=== PATIENT | male | born 1960 | race Caucasian/White ===

== ENCOUNTER → 2016-11-08 | Outpatient (CLI) | payer OTHER ==
--- NOTE | 2016-11-08 08:57 | REP ---
MRI CERVICAL SPINE WITHOUT CONTRAST: 11/08/2016. Clinical history: Neck pain, cervical disc disease. Comparison: 03/21/2004 x-ray. Technique: Sagittal T1, T2 and STIR images with axial T1 and T2 sequences provided. Findings. The normal cervical lordosis is maintained. There is cervical spondylosis with disc space narrowing at C4-5 and greater at C6-7. Loss of disc water signal at all levels. The disc height is maintained at the other levels. Vertebral body heights and marrow signal are normal except for discogenic endplate changes at the C6-7 and C4-5 levels. These are greater at the lower of these two levels. The dens intact. The cervical cord shows no intrinsic signal abnormality, syrinx, atrophy or mass. Craniocervical junction shows ample subarachnoid space with no cerebellar tonsillar ectopia. At C2-3, C3-4 and C4-C5, there is no significant disc bulge or herniation and no spinal stenosis. There is some mild foraminal encroachment on the left at C3-4 due to facet spurs. At C5-6, there is a minimal disc bulge centrally, thinning ventral subarachnoid space but not causing cord compression or central canal stenosis. Foramina are adequate on the right and show some mild encroachment on the left due to uncinate and facet spur. At C6-C7, there is some posterior osteophytic ridging with associated broad-based disc bulge and a small protrusion, right paracentral. This flattens the ventral thecal sac and cord surface. It abuts C8 nerve roots. There is bilateral foraminal encroachment due to uncinate and facet spurs. At C7-T1, there is no significant disc bulge or herniation and no central canal stenosis. There is foraminal encroachment on the right due to uncinate facet spur while the left foramen was ample. Impression: 1. Multilevel degenerative disc disease with posterior osteophytic ridging, broad-based disc bulge and right paracentral disc protrusion at C6-7 abutting and flattening the ventral cord surface causing mild to moderate central canal stenosis. There is foraminal encroachment bilaterally right greater than left. 2. Foraminal encroachment on the right at C7-T1 without central canal stenosis. 3. Mild foraminal encroachment on the left at C5-6 without central canal stenosis. Levels above show no central canal stenosis and only foraminal encroachment on the left side at C4-5 and C3-4. Signed by Ari Grace MD 11/08/2016 09:15 A
== END ==
LOC: M RAD 07:10
PROVIDERS: ATTEND Physician Assistant
DX: M50.30 Other cervical disc degeneration, unspecified cervical region (principal)

== ENCOUNTER → 2017-03-05 | Outpatient (REF) | payer OTHER ==
[2017-03-05 13:35] LABS: INR 0.93
== END ==
LOC: M LAB REF 12:41
PROVIDERS: ATTEND Family Medicine
DX: Z01.818 Encounter for other preprocedural examination (principal)

== ENCOUNTER → 2018-07-28 | Outpatient (CLI) | payer OTHER ==
[~2018-07-28] MED LIST: PROHANCE 279.3MG/ML 15ML VIAL (A9576) As Ordered; PROHANCE 279.3MG/ML 5ML VIAL (A9576) As Ordered
== END ==
LOC: M RAD 09:01
DX: M50.222 Other cervical disc displacement at C5-C6 level (principal); M50.223 Other cervical disc displacement at C6-C7 level; Z98.1 Arthrodesis status; M50.31 Other cervical disc degeneration, high cervical region
CPT/HCPCS: A9576

== ENCOUNTER → 2020-05-05 | Outpatient (CLI) | payer OTHER | LOC: M LABSMTC 12:03 | PROVIDERS: ATTEND Orthopaedic Surgery | DX: Z20.828 Contact with and (suspected) exposure to other viral communicable diseases (principal) ==

== ENCOUNTER → 2020-07-19 | Outpatient (CLI) | payer OTHER ==
[~2020-07-19] MED LIST changes: -PROHANCE 279.3MG/ML 15ML VIAL (A9576) As Ordered; +PROHANCE 279.3MG/ML 15ML VIAL As Ordered ONE; -PROHANCE 279.3MG/ML 5ML VIAL (A9576) As Ordered; +PROHANCE 279.3MG/ML 5ML VIAL As Ordered ONE
--- NOTE | 2020-07-19 14:47 | REPVR ---
PROCEDURE INFORMATION: Exam: MR Head Without and With Contrast Exam date and time: 07/19/2020 2:21 PM Age: 60 years old Clinical indication: Other: Snhl worse RT ear; Additional info: Snhl worse RT ear, R/O retrochoclear path TECHNIQUE: Imaging protocol: MR of the head without and with intravenous contrast. 3D rendering (Not supervised by radiologist): MIP and/or 3D reconstructed images were created by the technologist. Contrast material: PROHANCE; Contrast volume: 20 ml; Contrast route: INTRAVENOUS (IV); COMPARISON: No relevant prior studies available. FINDINGS: Brain: There is no abnormal diffusion weighted signal intensity to suggest an acute ischemic event. Cerebral ventricles: Normal. No ventriculomegaly. Bones/joints: Unremarkable. Paranasal sinuses: Normal as visualized. No acute sinusitis. Mastoid air cells: Normal as visualized. No mastoid effusion. Internal auditory canals: The 7th and 8th nerves are well seen in the internal auditory canals on heavy T2 weighted series 601. The fluid containing vestibular structures are unremarkable. There is no enhancement associated with the IAC's. Orbits: Unremarkable. Soft tissues: Unremarkable. Other vasculature: Normal vascular flow voids are present. IMPRESSION: 1. The 7th and 8th nerves are well seen in the internal auditory canals on heavy T2 weighted series 601. The fluid containing vestibular structures are unremarkable. There is no enhancement associated with the IAC's. 2. No acute intracranial process is identified. Electronically signed by: Tomás Childs On 07/19/2020 14:47:20 PM
== END ==
LOC: M RAD 12:57
PROVIDERS: ATTEND Otolaryngology
DX: H90.3 Sensorineural hearing loss, bilateral (principal)

== ENCOUNTER → 2021-04-17 | Outpatient (REF) | payer OTHER ==
[2021-04-17 12:18] LABS: INR 0.96; PROTHROMBIN TIME 13.2 SECONDS (12.7-14.5)
[2021-04-17 12:23] LABS: APPEARANCE, URINE CLEAR (CLEAR); BACTERIA, URINE AUTO NEGATIVE (NEGATIVE); BILIRUBIN, URINE AUTO NEGATIVE (NEGATIVE); BLOOD, URINE BLOOD NEGATIVE (NEGATIVE); COLOR, URINE YELLOW (YELLOW); GLUCOSE, URINE (UA) AUTO NEGATIVE (NEGATIVE); KETONE, URINE AUTO NEGATIVE (NEGATIVE); LEUKOCYTE ESTERASE, URINE AUTO NEGATIVE (NEGATIVE); MUCUS, URINE SMALL (NEGATIVE); NITRITE, URINE AUTO NEGATIVE (NEGATIVE); PROTEIN, URINE AUTO 1+ mg/dL (NEGATIVE); RBC, URINE AUTO 3 /HPF (0-3); SPECIFIC GRAVITY URINE AUTO 1.028 (1.002-1.035); SQUAMOUS EPITHELIAL CELL UR AU 0 /HPF (0-6); WBC, URINE AUTO 1 /HPF (0-3)
== END ==
LOC: M LAB REF 11:42
PROVIDERS: ATTEND Family Medicine
DX: Z00.00 Encounter for general adult medical examination without abnormal findings (principal); M25.562 Pain in left knee

== ENCOUNTER 2021-07-20 08:48 | Emergency (ER) | payer OTHER ==
[~2021-07-20] VITALS: Ht 188 cm; Wt 123.1 kg
[2021-07-20] MEDS ORDERED: MELO15TA28 (09:16)
[2021-07-20] MEDS ORDERED: CARV25TA (09:16)
[2021-07-20] MEDS ORDERED: ESOM40CA35 (09:16)
[2021-07-20] MEDS ORDERED: GABA-282 (09:16)
[2021-07-20 10:45] LABS: BASO % 0.5 % (0.0-1.0); EOS # 0.3 10^3/uL (0.0-0.5); EOS % 3.1 % (0.0-3.0); HEMATOCRIT 45.8 % (42.0-52.0); HEMOGLOBIN 14.7 g/dl (13.5-17.5); LYMPH # 1.8 10^3/uL (1.5-5.0); LYMPH % 20.2 % (24.0-44.0); MEAN CORPUSCULAR HEMOGLOBIN 29.2 pg (27.0-33.0); MEAN CORPUSCULAR HGB CONC 32.1 g/dl (32.0-36.5); MEAN CORPUSCULAR VOLUME 90.9 fl (80.0-96.0); MONO % 11.3 % (2.0-8.0); NEUTROPHILS # 5.7 10^3/uL (1.5-8.5); NEUTROPHILS % 64.6 % (36.0-66.0); PLATELET COUNT, AUTOMATED 204 10^3/uL (150-450); RED BLOOD COUNT 5.04 10^6/uL (4.30-6.10); WHITE BLOOD COUNT 8.8 10^3/uL (4.0-10.0)
[2021-07-20 11:01] LABS: BLOOD UREA NITROGEN 19 MG/DL (7-18); CALCIUM LEVEL 9.2 MG/DL (8.5-10.1); CARBON DIOXIDE LEVEL 29 MEQ/L (21-32); CHLORIDE LEVEL 105 MEQ/L (98-107); CREATININE FOR GFR 0.93 MG/DL (0.70-1.30); GLOMERULAR FILTRATION RATE > 60.0 (>56); GLUCOSE, FASTING 107 MG/DL (70-100); POTASSIUM SERUM 4.4 MEQ/L (3.5-5.1); SODIUM LEVEL 139 MEQ/L (136-145); URIC ACID 6.5 MG/DL (3.5-7.2)
[2021-07-20] MEDS ORDERED: MEDR4PAK PO ×2 (12:33→12:37)
[2021-07-20 12:42] VITALS: BP 145/100
[2021-07-20] MEDS ORDERED: predniSONE 20 MG TAB PO ONE (12:45)
== END 2021-07-20 13:11 | disposition home or self-care (01) ==
LOC: M ED 08:48
DX: M79.674 Pain in right toe(s) (principal); W30.89XA Contact with other specified agricultural machinery, initial encounter; Y92.009 Unspecified place in unspecified non-institutional (private) residence as the place of occurrence of the external cause; Y93.9 Activity, unspecified; Y99.9 Unspecified external cause status; K21.9 Gastro-esophageal reflux disease without esophagitis; Z96.653 Presence of artificial knee joint, bilateral
CPT/HCPCS: 73630; 80048; 84550; 85025; 99284; J7512